=== PATIENT | female | born 1980 | race Asian ===

== ENCOUNTER 2018-05-02 18:32 | Emergency (ER) | payer MEDICAID ==
[~2018-05-02] VITALS: Ht 154.9 cm; Wt 82.0 kg
[2018-05-03] MEDS ORDERED: IBUPROFEN 600MG TABLET PO STA (00:03)
[2018-05-03] MEDS ORDERED: ACETAMINOPHEN WITH CODEINE 300/30MG TABLET PO STA (00:03)
[2018-05-03] MEDS ORDERED: ALBUTEROL (0.5%) 2.5MG/0.5ML NEB HHN ONE (00:15)
[2018-05-03 02:02] VITALS: BP 113/59
== END 2018-05-03 02:00 | disposition home or self-care (01) ==
LOC: ER 18:32
DX: J40 Bronchitis, not specified as acute or chronic (principal); J06.9 Acute upper respiratory infection, unspecified; F17.200 Nicotine dependence, unspecified, uncomplicated
CPT/HCPCS: 71045; 93005; 94640; 99283; J7611; Z7610

== ENCOUNTER 2018-05-05 01:25 | Emergency (ER) | payer MEDICAID ==
[~2018-05-05] VITALS: Ht 154.9 cm; Wt 83.0 kg
[2018-05-05] MEDS ORDERED: IPRATROPIUM BROMIDE (0.02%) 0.5MG/2.5ML NEB HHN STA (02:36)
[2018-05-05] MEDS ORDERED: ALBUTEROL (0.083%) 2.5MG/3ML NEB HHN STA (02:36)
[2018-05-05 04:18] VITALS: BP 126/88
== END 2018-05-05 04:26 | disposition home or self-care (01) ==
LOC: ER 02:00
DX: J40 Bronchitis, not specified as acute or chronic (principal); F17.200 Nicotine dependence, unspecified, uncomplicated; Z98.890 Other specified postprocedural states
CPT/HCPCS: 94640; 99283; J7611

== ENCOUNTER 2018-11-23 21:39 | Emergency (ER) | payer MEDICAID ==
[~2018-11-23] VITALS: Ht 157.5 cm; Wt 92.0 kg
[2018-11-23 23:23] LABS: CLARITY URINE CLEAR (CLEAR); COLOR URINE DARK YELLOW (YELLOW); KETONES URINE TRACE (NEGATIVE); LEUKOCYTE ESTERASE URINE NEGATIVE (NEGATIVE); NITRITE URINE NEGATIVE (NEGATIVE); OCCULT BLOOD URINE NEGATIVE (NEGATIVE); PH URINE 6.5 (4.5-8.0); PROTEIN URINE NEGATIVE (NEGATIVE); SPECIFIC GRAVITY URINE 1.024 (1.005-1.030)
[2018-11-24 05:09] LABS: BASOPHILS % 1.7 % (0.0-2.0); EOSINOPHILS % 1.5 % (0.0-5.0); HEMATOCRIT. 37.8 % (36.0-48.0); HEMOGLOBIN. 12.8 g/dL (12.0-16.0); LYMPHOCYTES % 16.3 % (20.0-50.0); MEAN CORPUSCULAR HEMOGLOBIN 31.8 pg (28.0-32.0); MEAN CORPUSCULAR VOLUME 93.5 fL (81.0-99.0); MEAN PLATELET VOLUME 7.6 fl (7.4-10.4); MONOCYTES % 6.2 % (2.0-8.0); NEUTROPHILS % 74.3 % (40.0-76.0); PLATELET 375 x1000/uL (130-400); RED BLOOD CELL COUNT 4.04 mill/uL (4.2-5.4); RED CELL DISTRIBUTION WIDTH 14.3 % (11.6-14.6)
[2018-11-24 05:14] LABS: CHLORIDE 102 mEq/L (98-107)
[2018-11-24 05:46] LABS: B-HCG QUANTITATIVE 84887 mIU/mL (<3)
[2018-11-24 06:45] VITALS: BP 110/70
== END 2018-11-24 06:47 | disposition home or self-care (01) ==
LOC: ER 21:39
DX: O46.91 Antepartum hemorrhage, unspecified, first trimester (principal); Z3A.08 8 weeks gestation of pregnancy; F17.200 Nicotine dependence, unspecified, uncomplicated; Z98.890 Other specified postprocedural states
CPT/HCPCS: 36415; 76801; 81003; 81025; 84702; 86850; 86900; 99284

== ENCOUNTER 2019-06-05 16:07 | Emergency (ER) | payer MEDICAID ==
[~2019-06-05] VITALS: Ht 167.6 cm; Wt 121.4 kg
[2019-06-05 16:37] VITALS: BP 156/79
== END 2019-06-05 21:02 | disposition left against medical advice (07) ==
LOC: ER 16:07
DX: O99.513 Diseases of the respiratory system complicating pregnancy, third trimester (principal); J11.1 Influenza due to unidentified influenza virus with other respiratory manifestations; Z3A.36 36 weeks gestation of pregnancy; Z53.21 Procedure and treatment not carried out due to patient leaving prior to being seen by health care provider